=== PATIENT | male | born 1980 ===

== ENCOUNTER 2017-01-02 11:47 | Observation (INO) ==
[2017-01-02] MEDS ORDERED: ASPIRIN 325 MG TABLET PO STA (12:32)
[2017-01-02] MEDS ORDERED: ALUM/MAG/SIMETH/LIDO VISC 1:1 30 ML BOTTLE PO STA (12:32)
[2017-01-02] MEDS ORDERED: NITROGLYCERIN 2% OINT 1 INCH/GM PACK TOP STA (12:32)
[2017-01-02] MEDS ORDERED: NITROGLYCERIN SL 0.4 MG TABLET SL PRN (12:32)
[2017-01-02] MEDS ORDERED: ONDANSETRON 4 MG/2 ML VIAL IV PRN ×2 (12:32→17:39)
[2017-01-02] MEDS ORDERED: METOPROLOL TARTRATE 5 MG/5 ML VIAL IV STA (12:32)
[2017-01-02] MEDS ORDERED: MORPHINE 2 MG/1 ML SYRINGE IV PRN ×2 (12:32→17:39)
[2017-01-02] MEDS ORDERED: ENOXAPARIN 100 MG/ML SYRINGE SUBCUT STA (12:32)
--- NOTE | 2017-01-02 12:36 | EKG Report ---
Stationary ECG Study [facility] ER Test Date: 01/02/2017 12:11:20 PM Pat Name: LUDIVINA MORGAN Department: Room: 271 Gender: M Shank Stitcher: Yesenia Gómez : 1980 Requested by: Hira Braswell Order Number: [id number] Reading MD: JULIA YBARRA Intervals [place] Rate: 77 P: 69 MA: 146 QRS: 66 QRSD: 100 T: 47 QT: 356 QTc: 387 Interpretive Statements SINUS RHYTHM NONSPECIFIC T WAVE ABNORMALITY Electronically Signed On 01-02-17 18:44:33 CDT by JULIA YBARRA [id number]
[2017-01-02] MEDS ORDERED: ASPIRIN 325 MG TABLET ONE ×2 (12:39→12:41)
[2017-01-02] MEDS ORDERED: NITROGLYCERIN 2% OINT 1 INCH/GM PACK TOP ONE (12:39)
[2017-01-02] MEDS ORDERED: METOPROLOL TARTRATE 5 MG/5 ML VIAL IV ONE (12:39)
[2017-01-02] MEDS ORDERED: ENOXAPARIN 120 MG/0.8 ML SYRINGE SUBCUT ONE (12:39)
[2017-01-02] MEDS ORDERED: ALUM/MAG/SIMETH/LIDO VISC 1:1 30 ML BOTTLE PO ONE (12:40)
--- NOTE | 2017-01-02 12:44 | Emergency Department Note ---
Tejal Robb Brittany, am scribing for, and in the presence of, Hira Jones MD 12: 35. Karen Robb James D, MD, personally performed the services described in this documentation, ascribed by Sona Toure in my presence, and it is both accurate and complete . Arrival - Arrival Chief Complaint: Chest Pain Stated Complaint: chest pain,came from clinic ED Nursing Triage Note: Pt sent from [facility] by Lorenzo for evaluation of left sided chest pain that radiates down his left arm. Onset of pain x3 days ago. ASA 325mg po given at the clinic. Mode of Arrival: Wheelchair Limitations: No Limitations Source: Patient Time Seen by Provider: 01/02/17 12:18 - History of Present Illness HPI Narrative: This is s 36 y/o black male,who presents to the ED with c/o chest pain which started 3 days ago. He localizes the chest pain to the left side of the chest. He reports the chest pain goes into his left arm. He states his fingers are numb. He states the numbness comes and goes, but the chest pain is constant. Pt reports there is Shortness of breath with the chest pain. He denies any vomiting , or diaphoresis. He reports the dyspnea is worse with exertion but does not affect the chest pain. Pt has no other complaints/pain in the ED at this time. Pt has a PMHx of HTN. Pt denies a surgical Hx. Pt has a family medical Hx of heart disease. Pt denies a social Hx. Onset (ago): day(s) (Started 3 days ago) Consistency: constant Severity: moderate Allergies/Adverse Reactions: Allergies Allergy/AdvReac Type Severity Reaction Status Date / Time No Known Allergies Allergy Verified 01/02/17 12:07 Home Medications: Home Medications Medication Instructions Recorded Confirmed Type amLODIPine [Norvasc] 5 mg PO DAILY 01/02/17 01/02/17 History Review of System - Review of System 12 point system: reviewed and no additional remarkable complaints except as stated - Review of System Constitutional: Absent: diaphoresis Cardiovascular: Present: chest pain (Left sided chest pain ) Gastrointestinal: Absent: nausea Medical,Surgical,& Family Hx - Medical History Cardio: History of: Hypertension - Family History Family History: Reports;: Family Heart Disease (Mother at the age of 39. ) - Social History Smoking Status: Never smoker Frequency of Alcohol Use: Rarely Type of Drug Use: None Exam Vital Signs: Vital Signs Temperature 98.1 F 01/02/17 12:30 Pulse Rate 72 01/02/17 13:00 Respiratory Rate 19 01/02/17 13:00 Blood Pressure 144/91 01/02/17 13:00 O2 Sat by Pulse Oximetry 96 01/02/17 13:00 GENERAL: This is a well-nourished well-developed black male in no apparent distress. VITAL SIGNS: Reviewed HEENT: Head is atraumatic and normocephalic. Pupils are equal round react to light. Extraocular movements are intact. Oropharynx is benign with moist mucous membranes. NECK: Neck is soft and supple without tenderness. There are no masses. There is no lymphadenopathy. LUNGS: Lungs are clear to auscultation. Chest rises symmetrically. There is no chest wall tenderness. CV: Heart is regular rate and rhythm without murmurs rubs or gallops. ABDOMEN: Abdomen is soft, nontender to palpation. There are no abdominal abnormal masses palpated. There is no organomegaly. Bowel sounds are present and active. SKIN: Skin is warm and dry. No rash. EXTREMITIES: Patient has full range of motion without tenderness. There is no pedal edema. NEUROLOGIC: Awake alert and oriented 4. Cranial nerves II through XII are grossly intact. Motor is 5 over 5 in all extremities bilaterally. Results - Labs CBC & BMP: 01/02/17 12:32 01/02/17 12:32 Lab Results: I have reviewed the patients labs Labs: Laboratory Tests 01/02/17 12:32 Troponin I < 0.015 - EKG EKG results: interpreted by ERMD - Impressions EKG: Normal sinus rhythm with a rate of 77, nonspecific ST-T wave changes, normal axis. - Diagnostic Findings Procedure: Chest x-ray: image reviewed by me (No infiltrates, no pleural effusions.) Disposition Clinical Impression: Chest pain, Essential hypertension, Family history of coronary artery disease in mother Case discussed with: patient Disposition: Still a Patient Condition: Stable
[2017-01-02 12:49] LABS: Basophils % 0.5 % (0.0-0.8); Eosinophils # 0.3 10*3/uL (0.0-0.87); Eosinophils % 4.5 % (0.00-10.9); Hematocrit 43.4 VOL% (42.0-52.0); Immature Granulocytes % 0.3 %; Immature Granulocytes Absolute 0.02 #; Lymphocytes # 2.7 10*3/uL (1.4-4.0); Lymphocytes % 47.6 % (21.2-54.2); Mean Corpuscular HGB Conc 32.3 GM/DL (32-36); Mean Corpuscular Hemoglobin 26 PG (27-34); Mean Corpuscular Volume 79.6 FL (87-102); Mean Platelet Volume 10.2 FL (9.6-12.0); Monocytes # 0.5 10*3/uL (0.11-0.8); Monocytes % 8.5 % (1.7-12.7); Neutrophils # 2.2 10*3/uL (1.4-7.4); Neutrophils % 38.6 % (38.7-73.9); Platelet Count 248 T/CUMM (130-400); Red Blood Count 5.45 MC/CUMM (3.8-5.5); Red Cell Distribution Width 14.5 % (9.3-17.3); White Blood Count 5.7 T/CUMM (4-12)
[2017-01-02 13:00] LABS: PT Patient Result 10.4 SECS; Partial Thromboplastin Time 30.3 SECS (0-40)
[2017-01-02 13:17] LABS: Apearance,Urine CLEAR (Clear); Bilirubin,Urine Negative (Negative); Blood, Urine Negative (Negative); Glucose,Urine (UA) Negative (Negative); Ketones,Urine Negative (Negative); Mucus,Urine Occasional /LPF (Occasional); Nitrite,Urine Negative (Negative); Protein,Urine Negative; RBC,Urine 1 /HPF (0-4); Urine Color Yellow (Yellow); Urine Specific Gravity 1.016 (1.001-1.035); Urine Urobilinogen < 2.0 EU/DL (0.2-1.0); WBC,Urine <1 /HPF (0-6)
--- NOTE | 2017-01-02 13:19 | XRay Report ---
Exam: XR chest 2V Date: 01/02/2017 12:33 PM Indication: Chest pain Comparison: None Technical: PA lateral Findings: The heart, lungs, mediastinum and bony structures are intact. External cardiac leads are present. Impression: 1. No acute cardiopulmonary pathology. PROCEDURE INTERPRETED AT [facility] DEPARTMENT OF RADIOLOGY Final Report Signed by: Dr. Tito De Paz
[2017-01-02 13:28] LABS: Alanine Aminotransferase 34 U/L (16-61); Albumin 4.1 G/DL (3.4-5.0); Alkaline Phosphatase 122 U/L (45-117); Aspartate Amino Transferase 26 U/L (0-37); Bilirubin,Total < 0.39 MG/DL (0.2-1.0); Calcium 9.1 MG/DL (8.5-10.1); Total Protein 7.9 G/DL (6.4-8.3)
[2017-01-02 13:29] LABS: Blood Urea Nitrogen 10 MG/DL (7-18); Glucose 98 MG/DL (74-106); Osmolality,Calculated 277.4 MOS/KG (273-304); Potassium 4.4 MMOL/L (3.5-5.1); Sodium 140 MMOL/L (136-145)
--- NOTE | 2017-01-02 14:37 | Hospitalist History & Physical ---
Assessment and Plan (1) Chest pain Status: Acute Assessment and plan: Chest pain was relieved with Nitro and initial cardiac enzymes were <0.015. We will monitor closely. Will obtain serial cardiac enzymes, echocardiogram, carotid doppers, lipid panel. If enzymes are positive; we will consult cardiology. Current Visit: Yes (2) Essential hypertension Status: Acute Assessment and plan: Patient was diagnosed on last year; currently on Norvasc. BP stable at time of admission. will resume home medications and adjust as needed. Current Visit: Yes (3) Family history of coronary artery disease in mother Status: Acute Assessment and plan: The patient has a strong family history of cardiovascular disease and hypertension. Reports that his mother of sudden cardiac at the age of 39. The patient seems very concerned about his health. Spoke in great detail on the importance of dietary modification and increase in exercise. Current Visit: Yes History of Present Illness Chief complaint: chest pain History of present illness: This is a very pleasant 36 year old male that presented to the ED at [facility] for a chief complaint of chest pain and discomfort. He has a past medical history of hypertension. Apparently, he started having episodes of intermittent chest discomfort about 3 days ago. He describes the pain as "heaviness" in quality with radiation down his left arm. He denied shortness of breath, syncope, nausea, and vomiting. He became alarmed and went to his PCP this morning for evaluation. He was given an aspirin there and sent the ED for further evaluation. At the time of ED presentation, he was given nitroglycerin and his chest pain subsided. Labs were obtained which were unremarkable. Cardiac enzymes were noted at <0.015. Chest radiograph was unremarkable. The patient reports that he has strong family history of hypertension and coronary artery disease. In addition, his mother from a sudden cardiac at the age of 39. After brief discussion with both Dr. Jones and Dr. Millan, the patient will be admitted to the hospitalist service for continuation of care. Home Medications Medication Instructions Recorded Confirmed Type amLODIPine [Norvasc] 5 mg PO DAILY 01/02/17 01/02/17 History Allergies Allergy/AdvReac Type Severity Reaction Status Date / Time No Known Allergies Allergy Verified 01/02/17 12:07 Medical,Surgical,& Family Hx - Medical History Cardio: History of: Hypertension - Family History Family History: Reports;: Family Heart Disease, Additional Family History ( Mother of sudden cardiac at age 39) - Social History Smoking Status: Never smoker Frequency of Alcohol Use: Rarely Type of Drug Use: None Marital Status: Single Lives With:: Alone Functional capacity: independent ambulation 12 point system: reviewed and no additional remarkable complaints except as stated Exam - Constitutional Vitals: Period Temp Pulse Resp BP Sys/Suarez Pulse Ox Last 24 Hr 98.1 F-98.1 F 72-79 12-19 143-172/91-105 96-98 General appearance: normal weight, no acute distress - Head Head exam: Present: normal inspection, normocephalic, atraumatic - Eye Eye exam: Present: EOMI. Absent: conjunctival injection Pupils: Present: MELISSA, normal accommodation - ENT ENT exam: Present: normal exam, normal external ear exam, normal oropharynx - Neck Neck exam: Present: normal inspection. Absent: lymphadenopathy, meningismus, tenderness, thyromegaly - Respiratory Respiratory exam: Present: clear to auscultation bilaterally. Absent: rales, rhonchi, stridor, wheezes - Cardiovascular Cardiovascular exam: Present: regular rate and rhythm. Absent: carotid bruit, diastolic murmur, gallop, JVD, rubs, systolic murmur - GI/Abdominal GI/Abdominal exam: Present: normal bowel sounds, soft. Absent: distended, firm , guarding - Extremities Exam Extremities exam: Present: normal inspection, normal capillary refill, full ROM. Absent: calf tenderness, edema - Back Exam Back exam: Present: normal inspection - Neurological Exam Neurological exam: Present: alert, oriented X3, CN II-XII intact - Psychiatric Psychiatric exam: Present: normal affect, normal mood - Skin Skin exam: Present: normal color, warm, dry Results - Labs CBC & BMP: 01/02/17 12:32 01/02/17 12:32 Lab Results: I have reviewed the past 24 hour labs
[2017-01-02 15:16] LABS: Risk Ratio 4.43; VLDL CHOLESTEROL 33.6 MG/DL
[2017-01-02 15:26] LABS: Magnesium 2.1 MG/DL (1.8-2.4); Phosphorous 3.3 MG/DL (2.5-4.9)
--- NOTE | 2017-01-02 15:45 | Ultrasound Report ---
Exam: Carotid ultrasound Date: 01/02/2017 Comparison: None Technique: Duplex scans of the carotid and vertebral arteries using B-mode/Alfredo scale imaging and Doppler spectral analysis and color flow. Reason: Hypertension, chest pain Findings: The right ICA measures 5.2 mm in diameter and the left ICA measures 4.5 mm in diameter. Color-flow documented in the visualized arteries. The peak systolic velocities are as follows: Right CCA: 70.3 cm/s Right ICA: 67.2 cm/s Right ECA: 122.1 cm/s Left CCA: 124.9 cm/s Left ICA: 56.4 cm/s Left ECA: 102.3 cm/s The peak systolic ICA/CCA velocity ratios are as follows: 1.0 on the right and 0.5 on the left. Antegrade flow is present in both vertebral arteries. Impression:[0-15% stenosis in both internal carotid arteries. No significant plaque formation. Antegrade flow in both vertebral arteries.] The Society of Radiologists in Ultrasound consensus conference criteria was used. The Ultrasound images were captured and stored. PROCEDURE INTERPRETED AT [facility] DEPARTMENT OF RADIOLOGY Final Report Signed by: Dr. Brenda Gomez
--- NOTE | 2017-01-02 15:45 | Ultrasound Report ---
Renal ultrasound Indication: Hypertension Comparison: None available Findings: Kidneys are normal in size and echogenicity. No hydronephrosis or nephrolithiasis is seen. The right renal length is 10.2 cm. The left renal length is 10.0 cm. No free fluid or other abnormality is seen. Impression: No evidence of abnormality demonstrated. Ultrasound images stored and captured. PROCEDURE INTERPRETED AT [facility] DEPARTMENT OF RADIOLOGY Final Report Signed by: Dr. Silverio Soni
[2017-01-02] MEDS ORDERED: GLUCAGON 1 MG VIAL IM PRN (17:39)
[2017-01-02] MEDS ORDERED: ACETAMINOPHEN 325 MG TABLET PO PRN (17:39)
[2017-01-02] MEDS ORDERED: DEXTROSE 50% 25 GM/50 ML VIAL IV PRN (17:39)
[2017-01-02] MEDS ORDERED: FAMOTIDINE 20 MG/2 ML VIAL IV SCH (18:00)
[2017-01-02 18:06] LABS: Anisocytosis 1+; Eosinophils 2 % (0-10); Lymphocytes 59 % (20-55); Platelet Estimate Normal; Segmented Neutrophils 38 % (50-85); Total Cells Counted 100
[2017-01-02 18:07] LABS: Microcytosis 1+
[2017-01-02] MEDS: INSULIN LISPRO 100 UNIT/ML SUBCUT SCH ×2 (18:17→21:00)
--- NOTE | 2017-01-02 18:30 | ECHO Report ---
Stephon Traceyndell Exam Date: 01/02/2017 15:32 Referring Physician: Technologist: Janet Flores RDCS Age: 36 Ht (in): 66 Wt (lb): 240 Gender: M Exam Location: [facility] Echo Indications: Chest pain, unspecified, Essential (primary) hypertension BP: 125 / 83 HR: 80 Rhythm: Sinus Technical Quality: Fair IMPRESSIONS Normal left ventricular cavity size. Normal left ventricular wall thickness. Left ventricular ejection fraction is estimated at 65 %. The right ventricle is normal in size and function. The right atrium is normal in size. The left atrium is normal in size. Morphologically normal mitral valve without significant stenosis or prolapse. There is no mitral regurgitation. Morphologically normal aortic valve without significant sclerosis or stenosis. There is no aortic regurgitation. Morphologically normal tricuspid valve without significant stenosis or regurgitation. Pulmonary artery systolic pressure is normal. Morphologically normal pulmonic valve. Trace pulmonary valve regurgitation. Normal pericardium without effusion. Normal ascending aorta dimension. MEASUREMENTS (Male / Female) Normal Values 2D ECHO LV Diastolic Diameter PLAX 4.6 cm 4.2 - 5.9 / 3.9 - 5.3 cm LV Systolic Diameter PLAX 3.0 cm LV Fractional Shortening PLAX 34.1 % IVS Diastolic Thickness 0.9 cm 0.6 - 1.0 / 0.6 - 0.9 cm LVPW Diastolic Thickness 0.9 cm 0.6 - 1.0 / 0.6 - 0.9 cm RV Internal Dim ED PLAX 2.9 cm Aortic Root Diameter 3.5 cm LA Systolic Diameter LX 4.3 cm 3.0 - 4.0 / 2.7 - 3.8 cm FINDINGS Left Ventricle Normal left ventricular cavity size. Normal left ventricular wall thickness. Left ventricular ejection fraction is estimated at 65 %. Right Ventricle The right ventricle is normal in size and function. Right Atrium The right atrium is normal in size. Left Atrium The left atrium is normal in size. Mitral Valve Morphologically normal mitral valve without significant stenosis or prolapse. There is no mitral regurgitation. Aortic Valve Morphologically normal aortic valve without significant sclerosis or stenosis. There is no aortic regurgitation. Tricuspid Valve Morphologically normal tricuspid valve without significant stenosis or regurgitation. Pulmonary artery systolic pressure is normal. Pulmonic Valve Morphologically normal pulmonic valve. Trace pulmonary valve regurgitation. Pericardium Normal pericardium without effusion. Aorta Normal ascending aorta dimension. Vito Brumfield MD (Electronically Signed) Final Date: 02 Jan 2017 18:29
[2017-01-02] MEDS: LISINOPRIL 10 MG TABLET PO SCH (21:38)
[2017-01-02] MEDS: METOPROLOL TARTRATE 25 MG TABLET PO SCH (21:38)
[2017-01-03 05:30] LABS: Basophils % 0.6 % (0.0-0.8); Eosinophils # 0.3 10*3/uL (0.0-0.87); Eosinophils % 5.2 % (0.00-10.9); Hematocrit 39.8 VOL% (42.0-52.0); Hemoglobin 12.8 GM/DL (14.0-18.0); Immature Granulocytes % 0.2 %; Immature Granulocytes Absolute 0.01 #; Lymphocytes # 3.3 10*3/uL (1.4-4.0); Lymphocytes % 53.7 % (21.2-54.2); Mean Corpuscular HGB Conc 32.2 GM/DL (32-36); Mean Corpuscular Hemoglobin 26 PG (27-34); Mean Corpuscular Volume 79.8 FL (87-102); Mean Platelet Volume 10.9 FL (9.6-12.0); Monocytes # 0.5 10*3/uL (0.11-0.8); Monocytes % 8.3 % (1.7-12.7); Platelet Count 245 T/CUMM (130-400); Red Blood Count 4.99 MC/CUMM (3.8-5.5); Red Cell Distribution Width 14.7 % (9.3-17.3); White Blood Count 6.2 T/CUMM (4-12)
[2017-01-03 05:52] LABS: Eosinophils 9 % (0-10); Lymphocytes 54 % (20-55); Platelet Estimate Adequate; Segmented Neutrophils 29 % (50-85); Total Cells Counted 100
[2017-01-03 05:53] LABS: Burr Cells Slight; Hypochromasia 1+; Microcytosis 1+; Ovalocytes Slight
[2017-01-03 06:08] LABS: Albumin 3.5 G/DL (3.4-5.0); Bilirubin,Total 0.5 MG/DL (0.2-1.0); Calcium 8.5 MG/DL (8.5-10.1); Phosphorous 3.5 MG/DL (2.5-4.9); Total Protein 6.7 G/DL (6.4-8.3)
[2017-01-03 06:09] LABS: Magnesium 2.4 MG/DL (1.8-2.4); Osmolality,Calculated 283.3 MOS/KG (273-304); Potassium 4.2 MMOL/L (3.5-5.1)
--- NOTE | 2017-01-03 07:43 | EKG Report ---
Stationary ECG Study [facility] Test Date: 01/02/2017 6:26:57 PM Pat Name: LUDIVINA MORGAN Department: Room: 271 Gender: M Sterilization Technician: : 1980 Requested by: Hira Braswell Order Number: [id number] Reading MD: ANTONINO GRANADOS Intervals [place] Rate: 76 P: 52 [place]: 146 QRS: 60 QRSD: 97 T: 34 QT: 373 QTc: 403 Interpretive Statements SINUS RHYTHM NONSPECIFIC T WAVE ABNORMALITY Electronically Signed On 01-03-17 11:20:25 CDT by ANTONINO GRANADOS [id number]
[2017-01-03] MEDS: INSULIN LISPRO 100 UNIT/ML SUBCUT SCH ×2 (07:54→12:29)
[2017-01-03] MEDS ORDERED: ASPIRIN 325 MG TABLET PO SCH (09:00)
[2017-01-03] MEDS ORDERED: amLODIPine 5 MG TABLET PO SCH (09:00)
[2017-01-03 10:20] LABS: Barbiturates Screen,Urine Negative (Negative); Benzodiazepines Screen,Urine Negative (Negative); Cannabinoid Screen,Urine Negative (Negative); Opiate Screen,Urine Negative (Negative); Phencyclidine Screen,Urine Negative (Negative)
--- NOTE | 2017-01-03 12:09 | Cardiology Consult Note ---
<Lavinia Gordon - Last Filed: 01/03/17 11:35> Assessment and Plan - Time spent with patient Time spent with patient: Greater than 30 minutes (1) Atypical chest pain Status: Chronic Assessment and plan: See plan of care listed below. Current Visit: Yes (2) Diabetes Status: Acute Assessment and plan: See plan of care listed below. Current Visit: Yes (3) Essential hypertension Status: Chronic Assessment and plan: See plan of care listed below. Current Visit: Yes (4) Family history of coronary artery disease in mother Status: Chronic Assessment and plan: See plan of care listed below. Current Visit: Yes (5) Obesity Status: Chronic Assessment and plan: See plan of care listed below. Current Visit: Yes History of Present Illness - Data of Consult Patient: new to practice Consult date: 01/03/17 Requesting Physician: Octavia Millan Primary care physician: Anny Yates - Consult Narrative Reason for consult: chest pain History of present illness: Service Coordinator Elderly Facility: [facility] PCP: TAE Mtz Mr. Tracey is a 36 year old male without known history of coronary artery disease , not routinely followed by cardiology. Patient presented to the emergency department yesterday evening with a 3 day history of chest pain. Patient has cardiac risk factors significant for new diagnosis of diabetes, obesity, hypertension and possible family history of coronary artery disease (mother at age 34, unaware if this was secondary to myocardial infarction or pulmonary embolism). Patient has past medical history of GERD. Patient has never been worked up by cardiology. Denies ever having heart catheterization or cardiac stress testing. Patient was in his usual state of health until Saturday night when he was awakened by chest pressure and left arm numbness. He tells me that his left arm has felt heavy ever since he woke up Saturday morning. He thinks he fell asleep laying on this arm, felt like his arm was "asleep." This was also accompanied by chest pressure. This has been ongoing, lasting until 3:00 early this morning. This is not accompanied by shortness of breath, nausea, diaphoresis or heart racing or palpitations. He reports a long-standing history of reflux. He tells me that his chest pain was worsened after eating and made better with walking and activity. He tells me that he is pretty active. He has been working out regularly. He denies exercise intolerance, easy fatigability and any changes in his breathing pattern. He can lift weights and walk long distances (three to five miles) without experiencing shortness of breath, chest pain, heaviness or tightness. He goes on to say that he could go out to [place] right now and run the five mile trail without any difficulty. Yesterday afternoon he went to see TAE Mtz. He reported his symptoms to her and was then sent over to the ER for further evaluation. He was given nitro in the ER, this did not relieve his pain. IV pepcid was initiated. Resolved spontaneously early this morning. Over his hospital course, his hemoglobin A1c was checked is noted to be 7.0. He now has a new diagnosis of diabetes. Diabetic education was ordered. Patient has been admitted under hospital medicine's service and housed in the telemetry unit. Cardiology has been consulted to further evaluate patient's chest pain. Patient was seen and examined on the telemetry unit. He is currently without chest pain, heaviness and tightness. EKG does not reveal any acute findings. Reveals sinus rhythm with nonspecific T-wave abnormality. Upon exam, his chest pain is not reproducible to palpation. Troponin has been negative 2. We will continue to follow the trend. Will further discuss his case with Dr. Burmfield and await his recommendations. Assessment/plan: 1. ATYPICAL CHEST PAIN - Now resolved. Patient presented to [facility] with atypical chest pain. Cardiac biomarkers have been negative. EKG does not reveal any acute findings. Symptoms are consistent with reflux. Continue Pepcid. Patient does have risk factors for heart disease including diabetes, obesity, hypertension and possible family history of coronary artery disease. His mother at age 34. He is unsure if she from myocardial infarction or pulmonary embolism. Because of this, patient wants reassurance that his heart is okay. At this point, I think it is reasonable to set patient up for an outpatient cardiac stress test. He is in favor of this plan as he is anxious for discharge. Patient will be given an appointment within the next week for cardiac stress test to be performed at [facility]. 2. NEW DIAGNOSIS OF DIABETES - Continue current plan of care with sliding scale insulin. Will add a low-dose statin at this time. 3. HYPERTENSION - This is currently well controlled. Continue current plan of care with ALEXANDRO inhibitor as patient is a new diagnosis of diabetes. 4. OBESITY - Counseled patient on importance of weight loss. Further plan and addendum to follow up with Dr. Brumfield. CC: Octavia Millan MD - Home Medications and Allergies Home Medications: Home Medications Medication Instructions Recorded Confirmed Type amLODIPine [Norvasc] 5 mg PO DAILY 01/02/17 01/02/17 History Aspirin [Aspirin EC] 81 mg PO DAILY #100 tablet. 01/03/17 Rx Atorvastatin [Lipitor] 10 mg PO BEDTIME #30 tablet 01/03/17 Rx Lisinopril [Prinivil] 10 mg PO BID #60 tablet 01/03/17 Rx Metoprolol Tartrate Tab [Lopressor 12.5 mg PO BID #60 tablet 01/03/17 Rx Tab] Pantoprazole Tab [Protonix Tab] 40 mg PO DAILY #30 tablet 01/03/17 Rx Allergies/Adverse Reactions: Allergies Allergy/AdvReac Type Severity Reaction Status Date / Time Shellfish Allergy ITCHING Verified 01/02/17 17:41 - Constitutional Constitutional: Absent: chills, fatigue, fever(s), frequent falls, headache(s), lethargy, malaise, weakness, weight gain, weight loss - Cardiovascular Cardiovascular: Present: chest pain at rest. Absent: claudication, diaphoresis , dyspnea, dyspnea on exertion, edema, radiating jaw, neck or arm pain, lightheadedness, orthopnea, palpitations, PND - Respiratory Respiratory: Absent: cough, dyspnea, hemoptysis, dyspnea on exertion, wheezing, snoring, pain on inspiration, change in phlegm color - Gastrointestinal Gastrointestinal: Present: heartburn. Absent: abdominal pain, change in bowel habits, coffee ground emesis, constipation, cramping, diarrhea, hematemesis, hematochezia, loose stools, melena, nausea, vomiting - Neurological Neurological: Present: paresthesias. Absent: abnormal gait, abnormal speech, behavioral changes, dizziness, frequent falls, headache(s), syncope - Hematologic/Lymphatic Hematologic/Lymphatic: Absent: easy bleeding, easy bruising, lymphadenopathy Medical,Surgical,& Family Hx - Medical History Cardio: History of: Hypertension - Family History Family History: Reports;: Family Heart Disease, Additional Family History ( Mother of sudden cardiac at age 39) - Social History Smoking Status: Never smoker Frequency of Alcohol Use: Rarely Type of Drug Use: None Physical Examination Vital Signs Temp Pulse Resp BP Pulse Ox 98.1 F 79 18 172/105 98 01/02/17 12:04 01/02/17 12:04 01/02/17 12:04 01/02/17 12:04 01/02/17 12:04 Other: General: Appears well with no apparent distress. Pleasant and cooperative. Appears comfortable. HEENT: PERRL, normocephalic, atraumatic. Mucous membranes moist. No jaundice noted. Conjunctiva moist and clear, sclerae anicteric Neck: No JVD/HJR, no thyromegaly or lymphadenopathy noted. No carotid bruit appreciated Cardiac: Regular rate and rhythm. No murmur rub or gallop. Lungs: Clear to auscultation without accessory muscle use to assist the respiratory pattern. Not requiring oxygen. Abdomen: Soft, bowel sounds normoactive. Nontender and nondistended. No abdominal bruit or thrill noted. No masses noted. Extremities: No clubbing, cyanosis noted. No edema noted. Upper extremity pulses 2+. Lower extremity pulses 2+. Capillary refill less than 3 seconds. Skin: No unusual lesions or rashes. No skin breakdown appreciated. Neuro: Awake, alert and oriented 3. Moves all extremities well without hemiparesis or paralysis. No essential tremor is appreciated. Result/EKG - Labs CBC & BMP: 01/03/17 04:03 01/03/17 04:03 Lab Results: I have reviewed the past 24 hour labs Labs: Laboratory Results - last 24 hr 01/02/17 01/02/17 01/02/17 18:23 19:46 Unknown WBC RBC Hgb Hct MCV MCH MCHC RDW Plt Count MPV Neut % (Auto) Lymph % (Auto) [place] % (Auto) Eos % (Auto) Baso % (Auto) Neut # (Auto) Lymph # (Auto) [place] # (Auto) Eos # (Auto) Baso # (Auto) Total Counted Immature Gran % Nucleated RBC % Immature Gran # Segmented Neutrophils Lymphocytes Monocytes Eosinophils Basophils Nucleated RBCs # Platelet Estimate Hypochromasia Microcytosis Ovalocytes [place] Cells Morphology Comment Sodium Potassium Chloride Carbon Dioxide Anion Gap BUN Creatinine GFR Calculation BUN/Creatinine Ratio Glucose POC Glucose 100 Calculated Osmolality Calcium Phosphorus Magnesium Total Bilirubin AST ALT Alkaline Phosphatase Troponin I < 0.015 Total Protein Albumin Globulin Albumin/Globulin Ratio Urine Opiates Screen Negative Ur Barbiturates Screen Negative Ur Phencyclidine Scrn Negative U Amphetamine/Methamph Negative U Benzodiazepines Scrn Negative U Cocaine Metab Screen Negative U Cannabinoids Screen Negative 01/03/17 01/03/17 01/03/17 04:03 04:03 07:09 WBC 6.2 RBC 4.99 Hgb 12.8 L Hct 39.8 L MCV 79.8 L MCH 26 L MCHC 32.2 RDW 14.7 Plt Count 245 MPV 10.9 Neut % (Auto) 32.0 L Lymph % (Auto) 53.7 [place] % (Auto) 8.3 Eos % (Auto) 5.2 Baso % (Auto) 0.6 Neut # (Auto) 2.0 Lymph # (Auto) 3.3 [place] # (Auto) 0.5 Eos # (Auto) 0.3 Baso # (Auto) 0.0 Total Counted 100 Immature Gran % 0.2 Nucleated RBC % 0.0 Immature Gran # 0.01 Segmented Neutrophils 29 L Lymphocytes 54 Monocytes 7 Eosinophils 9 Basophils 1.0 H Nucleated RBCs # 0.00 Platelet Estimate Adequate Hypochromasia 1+ Microcytosis 1+ Ovalocytes Slight [place] Cells Slight Morphology Comment Sodium 141 Potassium 4.2 Chloride 105 Carbon Dioxide 28 Anion Gap 12.2 BUN 15 Creatinine 1.10 GFR Calculation 108 BUN/Creatinine Ratio 13.00 Glucose 132 H POC Glucose 134 H Calculated Osmolality 283.3 Calcium 8.5 Phosphorus 3.5 Magnesium 2.4 Total Bilirubin 0.50 AST 23 ALT 31 Alkaline Phosphatase 101 Troponin I Total Protein 6.7 Albumin 3.5 Globulin 3.2 Albumin/Globulin Ratio 1.0 L Urine Opiates Screen Ur Barbiturates Screen Ur Phencyclidine Scrn U Amphetamine/Methamph U Benzodiazepines Scrn U Cocaine Metab Screen U Cannabinoids Screen Specialty Discharge - Follow Up or Referrals Follow up with: His, PCP [Other] - 01/10/17 10:00 am (See Anny Yates on January 10 at 10 a.m. for weight check, BP check, glucose check- patient has diabetes and trying diet control.) Vito Brumfield MD [Physician] - 01/10/17 8:00 am (You have a stress test on December at 8:00 a.m. Do not eat, drink , or take any medications after midnight before your appointment. Wear comfortable shoes. You will have an appointment with Dr. Brumfield on January 17, 2017 at 10:00 a.m. to review the results of your test. ) <Vito Brumfield - Last Filed: 01/03/17 14:50> History of Present Illness - Consult Narrative History of present illness: Mr. Tracey is a 36 year old male with atypical chest pain and no features that are consistent with angina. Because of risk factors and need screening and this will be planned as an outpatient. He can be discharged today. CC: Octavia Millan MD Physical Examination Vital Signs Temp Pulse Resp BP Pulse Ox 98.1 F 79 18 172/105 98 01/02/17 12:04 01/02/17 12:04 01/02/17 12:04 01/02/17 12:04 01/02/17 12:04 Result/EKG - Labs CBC & BMP: 01/03/17 04:03 01/03/17 04:03 Labs: Laboratory Results - last 24 hr 01/02/17 01/02/17 01/02/17 18:23 19:46 Unknown WBC RBC Hgb Hct MCV MCH MCHC RDW Plt Count MPV Neut % (Auto) Lymph % (Auto) [place] % (Auto) Eos % (Auto) Baso % (Auto) Neut # (Auto) Lymph # (Auto) [place] # (Auto) Eos # (Auto) Baso # (Auto) Total Counted Immature Gran % Nucleated RBC % Immature Gran # Segmented Neutrophils Lymphocytes Monocytes Eosinophils Basophils Nucleated RBCs # Platelet Estimate Hypochromasia Microcytosis Ovalocytes [place] Cells Morphology Comment Sodium Potassium Chloride Carbon Dioxide Anion Gap BUN Creatinine GFR Calculation BUN/Creatinine Ratio Glucose POC Glucose 100 Calculated Osmolality Calcium Phosphorus Magnesium Total Bilirubin AST ALT Alkaline Phosphatase Total Creatine Kinase CK-MB (CK-2) Troponin I < 0.015 Total Protein Albumin Globulin Albumin/Globulin Ratio Urine Opiates Screen Negative Ur Barbiturates Screen Negative Ur Phencyclidine Scrn Negative U Amphetamine/Methamph Negative U Benzodiazepines Scrn Negative U Cocaine Metab Screen Negative U Cannabinoids Screen Negative 01/03/17 01/03/17 01/03/17 04:03 04:03 07:09 WBC 6.2 RBC 4.99 Hgb 12.8 L Hct 39.8 L MCV 79.8 L MCH 26 L MCHC 32.2 RDW 14.7 Plt Count 245 MPV 10.9 Neut % (Auto) 32.0 L Lymph % (Auto) 53.7 [place] % (Auto) 8.3 Eos % (Auto) 5.2 Baso % (Auto) 0.6 Neut # (Auto) 2.0 Lymph # (Auto) 3.3 [place] # (Auto) 0.5 Eos # (Auto) 0.3 Baso # (Auto) 0.0 Total Counted 100 Immature Gran % 0.2 Nucleated RBC % 0.0 Immature Gran # 0.01 Segmented Neutrophils 29 L Lymphocytes 54 Monocytes 7 Eosinophils 9 Basophils 1.0 H Nucleated RBCs # 0.00 Platelet Estimate Adequate Hypochromasia 1+ Microcytosis 1+ Ovalocytes Slight [place] Cells Slight Morphology Comment Sodium 141 Potassium 4.2 Chloride 105 Carbon Dioxide 28 Anion Gap 12.2 BUN 15 Creatinine 1.10 GFR Calculation 108 BUN/Creatinine Ratio 13.00 Glucose 132 H POC Glucose 134 H Calculated Osmolality 283.3 Calcium 8.5 Phosphorus 3.5 Magnesium 2.4 Total Bilirubin 0.50 AST 23 ALT 31 Alkaline Phosphatase 101 Total Creatine Kinase CK-MB (CK-2) Troponin I Total Protein 6.7 Albumin 3.5 Globulin 3.2 Albumin/Globulin Ratio 1.0 L Urine Opiates Screen Ur Barbiturates Screen Ur Phencyclidine Scrn U Amphetamine/Methamph U Benzodiazepines Scrn U Cocaine Metab Screen U Cannabinoids Screen 01/03/17 01/03/17 12:11 12:23 WBC RBC Hgb Hct MCV MCH MCHC RDW Plt Count MPV Neut % (Auto) Lymph % (Auto) [place] % (Auto) Eos % (Auto) Baso % (Auto) Neut # (Auto) Lymph # (Auto) [place] # (Auto) Eos # (Auto) Baso # (Auto) Total Counted Immature Gran % Nucleated RBC % Immature Gran # Segmented Neutrophils Lymphocytes Monocytes Eosinophils Basophils Nucleated RBCs # Platelet Estimate Hypochromasia Microcytosis Ovalocytes [place] Cells Morphology Comment Sodium Potassium Chloride Carbon Dioxide Anion Gap BUN Creatinine GFR Calculation BUN/Creatinine Ratio Glucose POC Glucose 95 Calculated Osmolality Calcium Phosphorus Magnesium Total Bilirubin AST ALT Alkaline Phosphatase Total Creatine Kinase 408 H CK-MB (CK-2) < 1.0 Troponin I < 0.015 Total Protein Albumin Globulin Albumin/Globulin Ratio Urine Opiates Screen Ur Barbiturates Screen Ur Phencyclidine Scrn U Amphetamine/Methamph U Benzodiazepines Scrn U Cocaine Metab Screen U Cannabinoids Screen
[2017-01-03 12:17] VITALS: BP 123/64
[2017-01-03] MEDS: LISINOPRIL 10 MG TABLET PO SCH (12:47)
[2017-01-03] MEDS: METOPROLOL TARTRATE 25 MG TABLET PO SCH (12:47)
[2017-01-03 13:06] LABS: Troponin I Only < 0.015 NG/ML (0.00-0.045)
--- NOTE | 2017-01-03 14:18 | Discharge Summary ---
Hospital Course - Hospital Course Hospital Course: MR Tracey presented with uncontrolled HTn, new diagnosis of DM and atypical chest pain. His mother at 34yoof either NH or PE, the family is not certain. He ruled out for NH and his blood pressure has been controlled with lisinopril and lopressor. He has had no more chest pain. He was seen by cardiology and elects to have outpatient stress testing with Dr Brumfield in a week. I have coordinated care with Dr Brumfield through Lavinia Gordon NP. He will see his PCP Anny Sifuentes NP for HTN and new DM in a few days. I have counselled him regarding exrecise and weight loss as important ways to improve his health and potentially to cure his diabetes and HTN. He has also been seen by diabetes educators. His HGBA1C and Bp should be monitored as an outpatient. Until he is seen by his clinic providers, he will take the lopressor and lisinopril daily and also the Norvasc if his am Bp is over 140/90. If his SBP is under 120, he will take half the lisinopril. - Time spent with patient Time with patient DS: Greater than 30 minutes (exam, counseling, medicine reconciliation, documentation, care coordination.) Diagnosis - Discharge Diagnosis (1) Diabetes Status: Acute (2) Atypical chest pain Status: Chronic (3) Essential hypertension Status: Chronic (4) Family history of coronary artery disease in mother Status: Chronic (5) Obesity Status: Chronic Specialty Discharge - Follow Up or Referrals Follow up with: His, PCP [Other] - 01/10/17 10:00 am (See Anny Yates on January 10 at 10 a.m. for weight check, BP check, glucose check- patient has diabetes and trying diet control.) Vtio Brumfield MD [Physician] - 01/10/17 8:00 am (You have a stress test on December at 8:00 a.m. Do not eat, drink , or take any medications after midnight before your appointment. Wear comfortable shoes. You will have an appointment with Dr. Brumfield on January 17, 2017 at 10:00 a.m. to review the results of your test. ) Discharge Plan - Discharge Data Disposition: Disch To Home/Self Care Condition at Discharge: Stable Discharge Diet: diabetic diet, heart healthy Activity: resume usual activities as tolerated (exercise at least 30min a day once cleared by stress test) - Discharge Medications New Atorvastatin [Lipitor] 10 mg PO BEDTIME #30 tablet Lisinopril [Prinivil] 10 mg PO BID #60 tablet Metoprolol Tartrate Tab [Lopressor Tab] 12.5 mg PO BID #60 tablet Pantoprazole Tab [Protonix Tab] 40 mg PO DAILY #30 tablet Aspirin [Aspirin EC] 81 mg PO DAILY #100 tablet.dr Freeman amLODIPine [Norvasc] 5 mg PO DAILY - Follow Up or Referral Follow Up: His, PCP [Other] - 01/10/17 10:00 am (See Anny Yates on January 10 at 10 a.m. for weight check, BP check, glucose check- patient has diabetes and trying diet control.) Vito Brumfield MD [Physician] - 01/10/17 8:00 am (You have a stress test on , January 10, 2017 at 8:00 a.m. Do not eat, drink , or take any medications after midnight before your appointment. Wear comfortable shoes. You will have an appointment with Dr. Brumfield on January 17, 2017 at 10:00 a.m. to review the results of your test. ) - Forms/Instructions Exam - Constitutional Vitals: Period Temp Pulse Resp BP Sys/Suarez Pulse Ox Last 24 Hr 97.1 F-98.6 F 67-84 11-20 123-144/64-86 93-100 General appearance: no acute distress, morbidly obese - Head Head exam: Present: normocephalic, atraumatic - Eye Eye exam: Present: EOMI. Absent: scleral icterus - Respiratory Respiratory exam: Present: clear to auscultation bilaterally - Cardiovascular Cardiovascular exam: Present: regular rate and rhythm - GI/Abdominal GI/Abdominal exam: Present: normal bowel sounds, soft. Absent: tenderness - Extremities Exam Extremities exam: Absent: edema Discharge Results Procedures and tests throughout hospitalization: Pending Orders 01/02/17 12:32 Thyroid Function [place], S Stat Labs on day of discharge: Labs from last 24 hours 01/03/17 01/03/17 01/03/17 12:23 12:11 07:09 WBC RBC Hgb Hct MCV MCH MCHC RDW Plt Count MPV Neut % (Auto) Lymph % (Auto) [place] % (Auto) Eos % (Auto) Baso % (Auto) Neut # (Auto) Lymph # (Auto) [place] # (Auto) Eos # (Auto) Baso # (Auto) Total Counted Immature Gran % Nucleated RBC % Immature Gran # Segmented Neutrophils Lymphocytes Monocytes Eosinophils Basophils Nucleated RBCs # Platelet Estimate Hypochromasia Microcytosis Ovalocytes [place] Cells Morphology Comment Sodium Potassium Chloride Carbon Dioxide Anion Gap BUN Creatinine GFR Calculation BUN/Creatinine Ratio Glucose POC Glucose 95 134 H Calculated Osmolality Calcium Phosphorus Magnesium Total Bilirubin AST ALT Alkaline Phosphatase Total Creatine Kinase 408 H CK-MB (CK-2) < 1.0 Troponin I < 0.015 Total Protein Albumin Globulin Albumin/Globulin Ratio Urine Opiates Screen Ur Barbiturates Screen Ur Phencyclidine Scrn U Amphetamine/Methamph U Benzodiazepines Scrn U Cocaine Metab Screen U Cannabinoids Screen 01/03/17 01/03/17 01/02/17 04:03 04:03 Unknown WBC 6.2 RBC 4.99 Hgb 12.8 L Hct 39.8 L MCV 79.8 L MCH 26 L MCHC 32.2 RDW 14.7 Plt Count 245 MPV 10.9 Neut % (Auto) 32.0 L Lymph % (Auto) 53.7 [place] % (Auto) 8.3 Eos % (Auto) 5.2 Baso % (Auto) 0.6 Neut # (Auto) 2.0 Lymph # (Auto) 3.3 [place] # (Auto) 0.5 Eos # (Auto) 0.3 Baso # (Auto) 0.0 Total Counted 100 Immature Gran % 0.2 Nucleated RBC % 0.0 Immature Gran # 0.01 Segmented Neutrophils 29 L Lymphocytes 54 Monocytes 7 Eosinophils 9 Basophils 1.0 H Nucleated RBCs # 0.00 Platelet Estimate Adequate Hypochromasia 1+ Microcytosis 1+ Ovalocytes Slight [place] Cells Slight Morphology Comment Sodium 141 Potassium 4.2 Chloride 105 Carbon Dioxide 28 Anion Gap 12.2 BUN 15 Creatinine 1.10 GFR Calculation 108 BUN/Creatinine Ratio 13.00 Glucose 132 H POC Glucose Calculated Osmolality 283.3 Calcium 8.5 Phosphorus 3.5 Magnesium 2.4 Total Bilirubin 0.50 AST 23 ALT 31 Alkaline Phosphatase 101 Total Creatine Kinase CK-MB (CK-2) Troponin I Total Protein 6.7 Albumin 3.5 Globulin 3.2 Albumin/Globulin Ratio 1.0 L Urine Opiates Screen Negative Ur Barbiturates Screen Negative Ur Phencyclidine Scrn Negative U Amphetamine/Methamph Negative U Benzodiazepines Scrn Negative U Cocaine Metab Screen Negative U Cannabinoids Screen Negative 01/02/17 01/02/17 19:46 18:23 WBC RBC Hgb Hct MCV MCH MCHC RDW Plt Count MPV Neut % (Auto) Lymph % (Auto) [place] % (Auto) Eos % (Auto) Baso % (Auto) Neut # (Auto) Lymph # (Auto) [place] # (Auto) Eos # (Auto) Baso # (Auto) Total Counted Immature Gran % Nucleated RBC % Immature Gran # Segmented Neutrophils Lymphocytes Monocytes Eosinophils Basophils Nucleated RBCs # Platelet Estimate Hypochromasia Microcytosis Ovalocytes [place] Cells Morphology Comment Sodium Potassium Chloride Carbon Dioxide Anion Gap BUN Creatinine GFR Calculation BUN/Creatinine Ratio Glucose POC Glucose 100 Calculated Osmolality Calcium Phosphorus Magnesium Total Bilirubin AST ALT Alkaline Phosphatase Total Creatine Kinase CK-MB (CK-2) Troponin I < 0.015 Total Protein Albumin Globulin Albumin/Globulin Ratio Urine Opiates Screen Ur Barbiturates Screen Ur Phencyclidine Scrn U Amphetamine/Methamph U Benzodiazepines Scrn U Cocaine Metab Screen U Cannabinoids Screen DS: Provider Date of admission: 01/02/17 14:28 Primary care physician: . No PCP Attending physician on admission: Octavia Millan MD Consults: 01/02/17 17:39 Consult to [facility], Educator [CONS] Routine Reason for Cable Tool Operator: Evaluate and Recommend Consult to Physician [CONS] Routine Comment: Consulting Provider: Cardiology - [facility] Consult to Specialist Group: Cardiology When should Consulting Provider be notified: Now Person Notified: [facility] Date Notified: 01/03/17 Time Notified: 07:33 Discharging clinician: Octavia Millan MD
[2017-01-03] MEDS ORDERED: ATORVASTATIN 10 MG TABLET PO SCH (21:00)
== END 2017-01-03 15:08 | disposition home or self-care (01) ==
LOC: N.ED 11:47 → N.EDINP 14:28 → INTOOBSV 14:41 → N.EDINP 17:29 → N.TELES 17:38
PROVIDERS: ADMIT Internal Medicine; ATTEND Internal Medicine